=== PATIENT | female | born 1980 | race Hispanic/Latino ===

== ENCOUNTER → 2024-11-24 | Emergency (ER) | payer BC ==
[~2024-11-24] VITALS: Ht 157.5 cm; Wt 55.8 kg
[~2024-11-24] MED LIST: AMOX1TAB16 PO
--- NOTE | 2024-11-24 16:17 | NUR ---
PT REFUSED ANIMAL CONTROL/POLCE NOTIFICATION, STATES THAT CAN WAS DISPOSED IN TRASH AFTER IT
--- NOTE | 2024-11-24 17:06 | ERN ---
General Chief Complaint: Animal Bite Stated Complaint: ANIMAL BITE Time Seen by MD: 16:32 History of Present Illness Initial Comments 44-year-old female with past medical history of hypertension presented to the emergency department with chief complaint of two puncture wounds in her left index finger due to cat bite this morning. Allergies: Coded Allergies: No Known Drug Allergies (Unverified Allergy, Unknown, 11/24/24) Home Meds Active Scripts Amoxicillin/Potassium Clav (Amox Tr-K Clv 875-125 mg Tab) 875 Mg-125 Mg Tablet, 1 TAB PO BID for 10 Days, #20 TAB 0 Refills Prov:GERALD FRANCISCO MD 11/24/24 Past Medical History Past Medical History: Hypertension Past Surgical History: Appendectomy Female( History) LMP: Nov 23, 2024 ROS Dictation CONSTITUTIONAL: No chills, no fever, no weakness, no diaphoresis, no malaise. HEAD/FACE: No signs of trauma. EENT: No eye pain, no blurred vision, no tearing, no double vision, no ear pain, no ear discharge, no nose pain, no nasal congestion, no throat pain, no throat swelling, no mouth pain. RESPIRATORY: No cough, no orthopnea, SOB, no stridor, wheezing. CARDIOVASCULAR: No chest pain, no edema, no palpitations, no syncope. GASTROINTESTINAL/ABDOMINAL: No abdominal pain, no constipation, no diarrhea, no nausea, no vomiting. GENITOURINARY: No abnormal discharge, no dysuria, no frequent urination, no hematuria. No complaints of pain in the genitals. MUSCULOSKELETAL: No back pain, no gout, no joint pain, no joint swelling, no muscle pain, no muscle stiffness, no neck pain. INTEGUMENTARY: Puncture wound in her left index finger NEUROLOGICAL/PSYCH: No anxiety, not depressed, no emotional problem, no headache, no numbness, no pre-existing deficit, no history of seizures, no tremors, no weakness. HEMATOLOGIC/LYMPHATIC: Not anemic, no history of blood clots, no apparent bleeding, no bruising, glands not swollen. Physical Exam Physical Exam Dictation GENERAL APPEARANCE: Alert, oriented x3, no acute distress, obese. HEAD AND FACE: Non-traumatic. EYES: PERRL, pink conjunctivas, eyelid no trauma, anterior chamber clear. EARS: Pinnas intact and no signs of trauma or erythema. Ear canals clear and no discharge. TMs no erythema. NOSE: No discharge, no bleeding. OROPHARYNX: Mouth normal, teeth no caries, tongue pink. Pharynx clear, no erythema. Tonsils no exudates, no abscesses noted. Mucous membrane moist. NECK: Supple, non-tender, no thyromegaly, no masses, no JVD, no bruits. BREAST: Deferred. CHEST: No tenderness, no crepitus, no paradoxical movement, no retractions. LUNGS: Clear, well-ventilated, symmetric, no rales, wheezing, no rhonchi, no stridor, good breath sounds bilaterally. HEART: Regular rate, regular rhythm, no murmur, no gallops. VASCULAR: No peripheral edema. ABDOMEN: Soft, positive bowel sounds, nondistended, no guarding, nontender, no rebound, no masses no hepatomegaly, no splenomegaly, no Schaffer's sign, no hernias. RECTAL: Deferred. GENITAL: Deferred. NEUROLOGICAL: Normal speech, gross motor function intact, gross sensory function intact. MUSCULOSKELETAL: Neck nontender, full range of motion, back nontender, full range of motion. EXTREMITIES: Nontender, full range of motion. SKIN: Two puncture wound on the left index finger MDM 44 Year old female presented with the complaint of to puncture wound due to cat bite. The wound was cleaned and she was given a tetanus shot. She also got 1 dose of Augmentin 875/125 mg in the ED. She is stable enough to be discharged to her home with continuation of Augmentin twice a day for 10 days. She is also advised to return back to ED for possible debridement and treatment with IV antibiotic if the wound worsens. ED Course Orders Procedure Category Date Status Time Amox/Clav 875/125mg PHA 11/24/24 Complete Tab (Augmentin 875-1 17:00 Tetanus,Diphtheria PHA 11/24/24 Complete Tox [Adult] (Diphther 17:00 Current Medications Medications (Trade) Dose Ordered Sig/Delmer Route PRN Reason Start Time Stop Time Status Last Admin Dose Admin Amoxicillin/ Clavulanate Potassium (Augmentin 875-125 Tablet) 1 each ONCE ONCE PO 11/24/24 17:00 11/24/24 17:01 DC 11/24/24 17:20 Tetanus/ Diphtheria Toxoids Adsorbed (DiphthERIA-teTANUS TOXOID [ADULT]/ DECAVAC) 0.5 ml ONCE ONCE IM 11/24/24 17:00 11/24/24 17:01 DC 11/24/24 17:24 Vital Signs Date Time Temp Pulse Resp B/P (MAP) Pulse Ox O2 Delivery O2 Flow Rate FiO2 11/24/24 17:27 97.5 74 16 137/84 99 Room Air* 0 21 11/24/24 16:07 98.4 94 18 157/93 97 Room Air DX & DISP Disposition: Discharge Departure Impression: Primary Impression: Cat bite of finger Condition: Stable Scripts Amoxicillin/Potassium Clav (Amox Tr-K Clv 875-125 mg Tab) 875 Mg-125 Mg Tablet 1 TAB PO BID for 10 Days, #20 TAB 0 Refills Prov: GERALD FRANCISCO MD 11/24/24 Additional Instructions: You presented to the emergency department of [facility] with a complaint of cat bite. Your wound was cleaned and given a tetanus shot. -You are prescribed Augmentin 875 /125mg twice a day for 10 days -If the wound get worse with the continuation of treatment, you may need to come to the ED for possible debridement and treatment with IV antibiotic. Referrals: SELF,REFERRAL (PCP) ATTESTATION BY PHYSICIAN I have seen and examined the patient. I reviewed the documentation, medical decision making, and treatment plan as noted by the resident provider above. I agree with the findings and plan of care. Korey Norris SUNIL MD Nov 24, 2024 17:06 KOREY NORRIS DO Nov 24, 2024 19:06
[2024-11-24] MEDS: AMOX/CLAV 875/125MG TAB PO ONE (17:20)
[2024-11-24 17:27] VITALS: BP 137/84; PULSE 74; RESP 16; TEMP 97.5; O2SAT 99
== END ==
LOC: EDH 16:06
DX: S61.230A Puncture wound without foreign body of right index finger without damage to nail, initial encounter (principal); I10 Essential (primary) hypertension; W55.01XA Bitten by cat, initial encounter; Z90.49 Acquired absence of other specified parts of digestive tract; Y93.89 Activity, other specified; Y92.89 Other specified places as the place of occurrence of the external cause; Y99.8 Other external cause status
CPT/HCPCS: 90471; 90714; 99284